=== PATIENT | female | born 2000 | race Caucasian/White ===

== ENCOUNTER 2021-10-06 12:38 | Outpatient (RCR) | payer BC, SELFPAY ==
[2021-10-06 13:07] LABS: Basophils Absolute Auto 0.1 K/mm3 (0.0-0.1); Basophils Percent Auto 0.5 % (0.2-1.2); Eosinophils Absolute Auto 0.2 K/mm3 (0-0.3); Eosinophils Percent Auto 1.7 % (0-4.4); Hematocrit 34.5 % (37.0-47.0); Hemoglobin 11.1 g/dL (12.0-15.0); Immature Granulocyte Absolute 0.05 K/mm3 (0.00-0.031); Immature Granulocyte Percent A 0.5 % (0-0.5); Lymphocytes Absolute Auto 1.46 K/mm3 (0.9-3.2); Lymphocytes Percent Auto 14.5 % (18.3-44.2); Mean Corpuscular HGB Conc 32.2 g/dl (32-36); Mean Corpuscular Hemoglobin 29.1 pg (26-34); Mean Corpuscular Volume 90.3 fl (80-100); Mean Platelet Volume 10.8 fl (7.4-10.4); Monocytes Absolute Auto 0.7 K/mm3 (0.1-0.6); Monocytes Percent Auto 7.2 % (2.6-8.5); Neutrophils Absolute Auto 7.6 K/mm3 (1.3-6.7); Neutrophils Percent Auto 75.6 % (45.5-73.1); Platelet Count Result 188 k/mm3 (150-375); Red Blood Count 3.82 M/mm3 (4.2-5.4); Red Cell Distribution Width 13.6 % (11.5-14.5); White Blood Count 10.1 K/mm3 (4.5-10.0)
[2021-10-06 13:54] LABS: Hepatitis B Surface Antigen Negative (Negative); Rubella IgG Antibody 38.3 IU/ML
[2021-10-06 13:59] LABS: HIV 1/2 Ab P24 Ag Result Negative (Negative)
[2021-10-06 14:02] LABS: Hepatitis C Virus Antibody Negative (Negative)
[2021-10-07 11:48] LABS: Rapid Plasma Reagin Non-Reactive (NonReactive)
[2021-10-08 16:40] LABS: Varicella IgG Antibody <135.00 Index (>=165.00)
== END 2022-01-04 23:59 | disposition home or self-care (01) ==
LOC: ANHLAB 12:38
PROVIDERS: Visit Provider Obstetrics & Gynecology
DX: Z11.4 Encounter for screening for human immunodeficiency virus [HIV] (principal); O36.0190 Maternal care for anti-D [Rh] antibodies, unspecified trimester, not applicable or unspecified; Z3A.00 Weeks of gestation of pregnancy not specified
CPT/HCPCS: 36415; 84443; 85025; 85461; 86592; 86703; 86762; 86787; 86803; 87340; G0432

== ENCOUNTER 2021-10-12 14:52 | Outpatient (CLI) | payer BC, SELFPAY ==
--- NOTE | ~2021-10-12 | US_ITS ---
EXAMINATION: US OB /maternal detail DATE: 10/12/2021 16:06 INDICATION: anatomic survey. TECHNIQUE: Real-time ultrasound of the pelvis was performed. COMPARISON: None. FINDINGS: There is a single living fetus in vertex presentation. The placenta is anterior, 5.4 cm in the cervi x. heart rate is 122 beats per minute (bpm). The amniotic fluid index is 25.8 cm, which is high (95th percentile is 23.9 cm). The following biometric data were obtained: Biparietal diameter (BPD): 8.7 cm; head circumference (HC): 32.3 cm; abdominal circumference (AC): 32 .6 cm; femur length (FL): 6.8 cm. These measurements are concordant. Estimated weight is 2795 g +/- 419 g, which correlates with the 14th percentile when 10/26/21 is used as estimated date of delivery. As single measurements, these parameters are each equal to the following estimated gestational ages: BPD: 35 weeks 0 days. HC: 36 weeks 4 days. AC: 36 weeks 3 days. FL: 34 weeks 6 days. estimated gestational age based solely on measurements from this exam is 35 weeks 5 days +/- 2 weeks 4 days. The cerebral ventricles, cerebellum, cisterna magna, and visualized portions of the spine are normal. The heart is normal. The diaphragm, stomach, kidneys, and bladder are normal. There are two umbilica l arteries to yield a 3-vessel cord. The cord insertion is normal. IMPRESSION: 1. Single living fetus in vertex presentation. 2. Estimated weight is 2795 g +/- 419 g, which correlates with the 14th percentile when 2 is used as estimated date of delivery. 3. Normal anatomic survey. 4. Polyhydramnios. Reviewed, dictated and finalized at location A. ABLE CANTEEN OPERATOR IMPRESSION: 1. Single living fetus in vertex presentation. 2. Estimated weight is 2795 g +/- 419 g, which correlates with the 14th percentile when 10/26/21 is used as estimated date of delivery. 3. Normal anatomic survey. 4. Polyhydramnios.
== END 2021-10-12 14:53 | disposition home or self-care (01) ==
LOC: ANHIMG 15:01
PROVIDERS: Visit Provider Obstetrics & Gynecology
DX: Z36.0 Encounter for antenatal screening for chromosomal anomalies (principal); Z36.3 Encounter for antenatal screening for malformations; O40.3XX0 Polyhydramnios, third trimester, not applicable or unspecified
CPT/HCPCS: 76805

== ENCOUNTER 2021-10-19 15:41 | Outpatient (RCR) | payer BC, SELFPAY ==
--- NOTE | ~2021-10-19 | US_ITS ---
EXAMINATION: US OB follow up w BPP EXAM DATE: 10/19/2021 17:10 INDICATION: Small for gestational age, elevated fluid level/ DEBBY,BPP SGA?/ 3rd trimester. Polyhydra mnios. TECHNIQUE: Pelvic obstetrical transabdominal sonogram was performed by a technologist. There are mu ltiple grayscale and Doppler images available for interpretation. Comparison is made to prior examina tion from 10/12/2021. FINDINGS: There is a single fetus identified in vertex presentation with a heart rate of 134 beats pe r minute. The placenta is located in the anterior position. There is no sonographic evidence of retr oplacental hemorrhage identified. AMNIOTIC FLUID INDEX Quadrant 1: 9.2 cm Quadrant 2: 2.6 cm Quadrant 3: 3.6 cm Quadrant 4: 7.1 cm Amniotic fluid index: 22.6 cm. (The 5th -- 95th percentile range is 7.3-23.9). Measurement on prior study was 25.5 cm. BIOPHYSICAL PROFILE (performed by the technologist) breathing (30 sec sustained breathing in 30 minutes): 2 out of 2 movement (3 gross body movements in 30 minutes): 2 out of 2 tone (one episode of iwkajxo-kajkycakw-iewontg limb movement): 2 out of 2 Amniotic fluid pocket (2 cm): 2 out of 2 Total score: 8 out of 8 IMPRESSION: 1. Single fetus with heart rate of 134 bpm. 2. Normal biophysical profile score of 8 out of 8. 3. DEBBY 22.6 cm, upper limits of normal. Reviewed, dictated and finalized at location A. DING ARCHITECT
[2021-10-19 17:29] VITALS: BP 111/60; PULSE 74
== END 2021-11-12 20:38 | disposition home or self-care (01) ==
LOC: ANHOBOP 15:41
PROVIDERS: Visit Provider Obstetrics & Gynecology
DX: O36.5930 Maternal care for other known or suspected poor fetal growth, third trimester, not applicable or unspecified (principal); O40.3XX0 Polyhydramnios, third trimester, not applicable or unspecified; Z3A.39 39 weeks gestation of pregnancy
CPT/HCPCS: 59025; 76816; 76819

== ENCOUNTER 2021-10-23 15:27 | Inpatient (IN) | payer BC, SELFPAY ==
[2021-10-23] VITALS (88 sets, daily range): BP systolic 93–136; BP diastolic 54–91; PULSE 53–154; RESP 16–18; TEMP 36.8–37; O2SAT 95–100; BMI 22.2
[2021-10-23 16:20] LABS: Basophils Percent Auto 0.3 % (0.2-1.2); Eosinophils Absolute Auto 0.1 K/mm3 (0-0.3); Eosinophils Percent Auto 0.9 % (0-4.4); Hematocrit 33.8 % (37.0-47.0); Immature Granulocyte Absolute 0.06 K/mm3 (0.00-0.031); Immature Granulocyte Percent A 0.6 % (0-0.5); Lymphocytes Absolute Auto 1.57 K/mm3 (0.9-3.2); Lymphocytes Percent Auto 14.5 % (18.3-44.2); Mean Corpuscular HGB Conc 32.5 g/dl (32-36); Mean Corpuscular Hemoglobin 28.9 pg (26-34); Mean Corpuscular Volume 88.7 fl (80-100); Mean Platelet Volume 10.4 fl (7.4-10.4); Monocytes Absolute Auto 0.5 K/mm3 (0.1-0.6); Monocytes Percent Auto 4.7 % (2.6-8.5); Neutrophils Absolute Auto 8.5 K/mm3 (1.3-6.7); Platelet Count Result 212 k/mm3 (150-375); Red Blood Count 3.81 M/mm3 (4.2-5.4); Red Cell Distribution Width 14.6 % (11.5-14.5); White Blood Count 10.8 K/mm3 (4.5-10.0)
--- NOTE | 2021-10-23 16:56 | PM.IMHP ---
H&P: HPI History of Present Illness Date/Time: 10/23/21 16:56 Patient is a 21-year-old LMP 01/19/2021 currently 39 weeks 4 days gestation. Patient is dated by LMP consistent with an ultrasound performed at [facility] at 7 weeks gestation, per patient report. Ultrasound report not available. Patient presents to labor and delivery with complaints of leakage of fluid. Patient reports leakage of clear fluid at approximately 3:00 p.m. Patient also reported contractions. Denies any vaginal bleeding. Reports good movement. Upon arrival to labor and delivery, patient was noted to be grossly ruptured. Decision was made to admit patient to labor and delivery. Initial cervical exam was /-2. Patient has history of late entry to care and initiated care at 36 weeks gestation. also complicated by possible IUGR and polyhydramnios. Chief Complaint: IUP at 39w4d PROM Early labor Late entry to care Review of Systems Review of Systems: All systems reviewed & are unremarkable except as noted in HPI and below Constitutional: Constitutional: Reports as per HPI, Reports no additional constitutional complaints, Denies chills, Denies fever(s), Denies headache(s) and Denies night sweats Eyes: Eyes: Reports as per HPI and Reports no additional eye complaints ENT: Reports system reviewed and no additional complaints, except as documented, Reports as per HPI, Reports Normal hearing present and Denies headache(s) Cardiovascular: Cardiovascular: Reports as per HPI, Reports no additional cardiovascular complaints, Denies chest pain and Denies dyspnea Respiratory: Respiratory: Reports as per HPI, Reports no additional respiratory complaints, Denies cough and Denies dyspnea Gastrointestinal: Gastrointestinal: Reports as per HPI, Reports no additional gastrointestinal complaints, Denies abdominal pain, Denies change in bowel habits, Denies change in stool character, Denies nausea and Denies vomiting Genitourinary: Genitourinary: Reports no additional female genitourinary complaints, Reports as per HPI, Denies abnormal vaginal bleeding, Denies genital lesions, Denies hot flashes, Denies dyspareunia, Denies pelvic pain, Denies sexual dysfunction, Denies urinary incontinence, Denies vaginal discharge, Denies vaginal dryness and Denies vaginal odor Musculoskeletal: Musculoskeletal: Reports no additional musculoskeletal complaints and Reports as per HPI Integumentary/Breasts: Skin/Breast: Reports system reviewed and no additional complaints, except as docu, Reports as per HPI, Denies breast pain and Denies nipple discharge Neurologic: Reports system reviewed and no additional complaints, except as documented, Reports as per HPI, Reports Normal hearing present and Denies headache(s) Psychiatric: Psychiatric: Reports no additional psychiatric complaints, Reports as per HPI, Denies anxiety and Denies depression Endocrine: Endocrine: Reports no additional endocrine complaints and Reports as per HPI Hematologic/Lymphatic: Hematologic/Lymphatic: Reports no additional hematologic/lymphatic complaints and Reports as per HPI Allergic/Immunologic: Allergic/Immunologic: Reports no additional allergic/immunologic complaints and Reports as per HPI PMFSH Past Medical History Medical History Vaginal delivery x1 Surgical History Surgical History No pertinent past surgical history Family History Family History Father Alcoholism Anxiety and depression Mother Bladder cancer Grandparent Breast cancer Grandparent Hypertension Diabetes mellitus Social History Social History Smoking status: Never smoker Alcohol intake: never Substance use: never Agree to blood products: Yes Meds Home Medications
[2021-10-23] MEDS: OXYTOCIN 30 UNITS/NS 500 ML 30 UNITS/500 ML BAG IV CONT (17:00)
[2021-10-23] MEDS: LACTATED RINGERS 1,000 ML 125 ML IV CONT (17:00)
--- NOTE | 2021-10-23 17:09 | LDADM ---
This patient, Kimberly Norman, was admitted to Labor/Delivery/Recovery 108 on 10/23/21 at 15:27. Plans for labor, pain management and were discussed with patient. Patient/family oriented to hospital policies and general routines including ID bracelet, bed and alarms, visiting hours, pain management, procedures, bathroom and other care routines, personal items, smoking policy, room service/diet and guest tray routines, security routines, and visiting hours. Patient/Family are encouraged to report perceived risks to care and to ask questions if they do not understand what they are told or what they should do. See OBIX for further documentation.
--- NOTE | 2021-10-23 18:25 | WPDANESEPP ---
Anes - Eval Pre Procedure Procedure: labor epidural Date/Time: 10/23/21 18:25 Surgeon: gypsy Preop Diagnosis: pain during labor Pre Op Diagnosis: Leaking Patient Data Age: 21 Gender: F Height: 1.6 m Weight: 57 kg Last Vital Signs Temp 36.9 C 10/23/21 17:46 Pulse 60 10/23/21 18:15 BP 112/62 10/23/21 18:15 Allergies Allergy/AdvReac Type Severity Reaction Status Date / Time No Known Allergies Allergy Unknown Verified 10/20/21 09:32 Home Medications Medication Instructions Recorded Confirmed Type docosahexaenoic acid 200 mg capsule mg PO 09/30/21 10/20/21 History Laboratory Tests 10/23/21 10/23/21 10/23/21 16:08 16:08 16:08 WBC 10.8 K/mm3 H K/mm3 (4.5-10.0) RBC 3.81 M/mm3 L M/mm3 (4.2-5.4) Hgb 11.0 g/dL L g/dL (12.0-15.0) Hct 33.8 % L % (37.0-47.0) MCV 88.7 fl fl (80-100) MCH 28.9 pg pg (26-34) MCHC 32.5 g/dl g/dl (32-36) RDW 14.6 % H % (11.5-14.5) Plt Count 212 k/mm3 k/mm3 (150-375) MPV 10.4 fl fl (7.4-10.4) Immature Gran % (Auto) 0.6 % H % (0-0.5) Neut % (Auto) 79.0 % H % (45.5-73.1) Lymph % (Auto) 14.5 % L % (18.3-44.2) [place] % (Auto) 4.7 % % (2.6-8.5) Eos % (Auto) 0.9 % % (0-4.4) Baso % (Auto) 0.3 % % (0.2-1.2) Lymph # (Auto) 1.57 K/mm3 K/mm3 (0.9-3.2) [place] # (Auto) 0.5 K/mm3 K/mm3 (0.1-0.6) Eos # (Auto) 0.1 K/mm3 K/mm3 (0-0.3) Baso # (Auto) 0.0 K/mm3 K/mm3 (0.0-0.1) Abs Immat Gran (auto) 0.06 K/mm3 H K/mm3 (0.00-0.031) Absolute Neuts (auto) 8.5 K/mm3 H K/mm3 (1.3-6.7) Absolute Nucleated RBC 0.0 K/mm3 K/mm3 (0.0-0.012) Nucleated RBC % 0.0 % % (0.0-0.2) RPR Pending Blood Type O Positive Antibody Screen Negative Patient hx anesthesia problems: none Family hx anesthesia problems: none Results Review: All pre-operative results and documents have been reviewed as part of the pre-operative evaluation. [facility] Past Medical History Medical History (Updated 10/23/21 @ 18:26 by Naila Cohen CRNA) Vaginal delivery x1 Surgical History Surgical History No pertinent past surgical history Family History Family History Father Alcoholism Anxiety and depression Mother Bladder cancer Grandparent Breast cancer Grandparent Hypertension Diabetes mellitus Social History Social History Smoking status: Never smoker Alcohol intake: never Substance use: current Spiritual care concerns: No Agree to blood products: Yes Exam Day of Procedure 10/23/21 18:25
[2021-10-23 19:51] LABS: Amphetamine Screen Urine Negative (Negative); Barbiturate Screen Urine Negative (Negative); Benzodiazepines Screen Urine Negative (Negative); Cannabinoid Screen Urine Positive (Negative); Cocaine Screen Urine Negative (Negative); Methadone Screen Urine Negative (Negative); Opiate Screen Urine Negative (Negative); Phencyclidine Screen Urine Negative (Negative)
[2021-10-23] MEDS: ONDANSETRON INJ 4 MG/2 ML VIAL IV PUSH (20:07)
--- NOTE | 2021-10-23 20:37 | PM.OBPRVD ---
OB - Delivery Note Procedure Delivery date: 10/23/21 Procedure: Patient is a 21-year-old now who presented to labor and delivery on the afternoon of 10/23/2021 at 39 weeks and 4 days gestation with complaints of leakage of fluid at 3:05 p.m. Patient was noted to be grossly ruptured at time of presentation and in early labor. Patient was admitted to labor and delivery. Initial cervical exam was approximately 2 cm dilated. Patient was observed for a while, however, did not make further cervical change. Pitocin was started for labor augmentation. Patient became uncomfortable and requested an epidural for pain management which was placed without difficulty. Patient made quick cervical change afterwards and was noted to be fully dilated at 8:01 p.m. Patient was prepped and draped for delivery. At 8:24 p.m., patient delivered infant head atraumatically and without difficulty in [place] presentation. Occiput restituted to maternal left side. With subsequent push, the infant's neck, shoulders, and rest of body delivered without difficulty. was crying spontaneously. 's nose and mouth were suctioned with bulb suction. Infant was placed on maternal abdomen where care was assumed by awaiting nursing staff. Delayed cord clamping was performed for approximately 60 seconds. The cord was clamped and cut. A segment of cord was collected for cord gases. Cord blood was collected. The placenta was delivered spontaneously and intact. Uterine fundus was noted to be firm with massage. On inspection, no lacerations were noted. Estimated blood loss for entire delivery was 50 cc. The infant was a liveborn female , apgars 9 and 9, weighing 6 lb 8 oz. Both mother and baby doing well at end of delivery. events: Labor Augmentation and Polyhydramnios Delivery augmentation: pitocin Delivery monitor: external FHT and external uterine Route of delivery: Laceration Description: None Specimen: Yes (placenta, cord blood, and cord gases) Quantitative Blood Loss (ml): 50 Anesthesia type: Epidural Disposition: floor Complications: No immediate complications [place] Baby Date of : 10/23/21 Time of : 20:24 Weeks of gestation at delivery: 39 (39.4) Infant gender: Female Weight (pounds): 6 Weight (ounces): 8 presentation: vertex position: Left Occiput Anterior Placenta delivery description: Spontaneous cord vessel description: 3 Vessels, Clamped/Cut and Delayed Cord Clamping score one minute: 9 score five minutes: 9
[2021-10-23] MEDS: OXYTOCIN 30 UNITS/NS 500 ML 30 UNITS/500 ML BAG 125 UNITS IV CONT (20:57)
[2021-10-23] MEDS: ACETAMINOPHEN 325 MG TABLET 650 MG PO (22:23)
[2021-10-24 04:12] VITALS: BP 120/69; PULSE 71; RESP 16; TEMP 37.2
[2021-10-24] MEDS: IBUPROFEN 600 MG TABLET PO ×3 (04:31→16:59)
--- NOTE | 2021-10-24 08:42 | PM.OBPNVD ---
OB - PN: Subj Subjective Date/time seen: 10/24/21 08:42 Patient doing well. Pain well controlled with medication. Minimal lochia. Ambulating without difficulty. Voiding well. OB - PN: Obj Data Labs CBC & Chem 7: 10/24/21 04:31 Labs: Laboratory Results - last 24 hr 10/23/21 10/23/21 10/23/21 16:08 16:08 19:23 WBC 10.8 H RBC 3.81 L Hgb 11.0 L Hct 33.8 L MCV 88.7 MCH 28.9 MCHC 32.5 RDW 14.6 H Plt Count 212 MPV 10.4 Immature Gran % (Auto) 0.6 H Neut % (Auto) 79.0 H Lymph % (Auto) 14.5 L [place] % (Auto) 4.7 Eos % (Auto) 0.9 Baso % (Auto) 0.3 Lymph # (Auto) 1.57 [place] # (Auto) 0.5 Eos # (Auto) 0.1 Baso # (Auto) 0.0 Abs Immat Gran (auto) 0.06 H Absolute Neuts (auto) 8.5 H Absolute Nucleated RBC 0.0 Nucleated RBC % 0.0 Urine Opiates Screen Negative Urine Methadone Screen Negative Ur Barbiturates Screen Negative Ur Phencyclidine Scrn Negative Ur Amphetamine Screen Negative U Benzodiazepines Scrn Negative Urine Cocaine Screen Negative U Cannabinoids Screen Positive A Blood Type O Positive Antibody Screen Negative 10/24/21 04:31 WBC RBC Hgb 10.0 L Hct 30.0 L MCV MCH MCHC RDW Plt Count MPV Immature Gran % (Auto) Neut % (Auto) Lymph % (Auto) [place] % (Auto) Eos % (Auto) Baso % (Auto) Lymph # (Auto) [place] # (Auto) Eos # (Auto) Baso # (Auto) Abs Immat Gran (auto) Absolute Neuts (auto) Absolute Nucleated RBC Nucleated RBC % Urine Opiates Screen Urine Methadone Screen Ur Barbiturates Screen Ur Phencyclidine Scrn Ur Amphetamine Screen U Benzodiazepines Scrn Urine Cocaine Screen U Cannabinoids Screen Blood Type Antibody Screen OB - PN A/P Assessment and Plan (1) Normal spontaneous vaginal delivery: Code(s): O80 - Encounter for full-term uncomplicated delivery Status: Acute Assessment and Plan: PPD#1 doing well continue routine care child protective services social worker consult requested for limited care anticipate dc home tomorrow Time Spent With Patient Time: Total time spent is greater than 50% in coordination of care (as documented) at patient's floor/unit and/or counseling patient: Exam Const: General: cooperative, healthy appearing, comfortable and no acute distress GI: Inspection: non-distended GI Palp: Yes Soft to palpation and No Tenderness to palpation present (GI) Other: fundus below umbilicus Extrem: Right lower extremity: no edema Left lower extremity: no edema Other: no calf tenderness Psych: Appearance: grossly normal Mental Status: mental status grossly normal
--- NOTE | 2021-10-24 09:00 | PC.NURSE ---
PT introductions made and plan of care discussed per post , pain management, breast feeding, pumping, daily care activities and baby in level 2 nursery. PT received such instructions per one to one discussion, mom baby care guide book, and demonstrations. Pt has no barrier to learning identified and pt sole recipient of such instructions this shift. PT verbalized understanding of such care.
--- NOTE | 2021-10-24 10:42 | PCCCNOTE ---
Addendum entered by ROSARIO Mckenna 10/24/21 12:08: Recvd email from [facility] that states: Your information has been reviewed and assessed by a Industrial Garage Servicer and was also approved by a foam cutting supervisor. The information you provided did not meet one of the criteria for an investigation (eligible victim, eligible perpetrator, eligible event, or jurisdiction). The information as been documented and will be kept on file. Should you learn of further information or have additional concerns, please feel free to contact us. Original Note: Recvd notification that pt. tested positive for THC during UDS. Baby also tested positive for THC during UDS. Baby's meconium is pending. Anticipate discharge tomorrow per SERA Albrecht. Pt. states no reason that she was using during , just never stopped once pt. found out she was . Pt. had late care due to switching insurance, pt. states. Pt. reports this is her 2nd baby. Pt. reports her daughter Omari is 3 years old. Pt. states she, , and Omari will live with FOLauar Dow (who was at bedside, but asleep). Pt. states her parents, and Aunt and Uncle are supportive, as well as Victor M's mother. Pt. reports having all necessary supplies for and established with both [employer]. Pt. denies prior [facility] involvement. resources provided. Online Report made #[id number]. SERA Albrecht aware.
[2021-10-24 11:15] VITALS: BP 116/52; PULSE 62; RESP 18; TEMP 36.6; O2SAT 100
[2021-10-24] MEDS: DOCUSATE SODIUM 100 MG CAPSULE PO ×2 (11:17→16:59)
[2021-10-24] MEDS: MULTIVIT/MIN/PREN/FOL AC/IRON TABLET 1 TAB PO (11:17)
[2021-10-24] MEDS: ACETAMINOPHEN 325 MG TABLET 650 MG PO ×2 (11:17→16:58)
[2021-10-24 12:00] VITALS: BP 114/45; PULSE 59; RESP 18; TEMP 36.6; O2SAT 100
[2021-10-24 16:00] VITALS: BP 112/69; PULSE 58; RESP 20; TEMP 36.7; O2SAT 99
[2021-10-24 20:10] VITALS: BP 107/69; PULSE 63; RESP 18; TEMP 36.7; O2SAT 100
[2021-10-25] MEDS: MULTIVIT/MIN/PREN/FOL AC/IRON TABLET 1 TAB PO (07:24)
[2021-10-25] MEDS: TETANUS,DIPHTHERIA,AC PERTUSSIS ADULT (0.5 ML) BOOSTRIX IM (07:25)
[2021-10-25] MEDS: IBUPROFEN 600 MG TABLET PO (07:27)
[2021-10-25 07:40] VITALS: BP 117/71; PULSE 65; RESP 16; TEMP 37.6; O2SAT 97
--- NOTE | 2021-10-25 08:02 | P.PNOB_ITS ---
OB - PN: Subj Subjective Date/time seen: 10/25/21 08:02 Patient comments: no complaints, pain well controlled and other (Lochia similar to menses) [place] baby status: doing well OB - PN: Obj Data Labs CBC & Chem 7: 10/24/21 04:31 OB - PN A/P Plan day: 2 (s/p vaginal delivery, doing well) Plan: routine care, discharge home and other (Follow up in office in 4 weeks) Time Spent With Patient Time: Total time spent is greater than 50% in coordination of care (as documented) at patient's floor/unit and/or counseling patient: Exam Const: General: no acute distress GI: Inspection: other (Fundus firm and nontender below umbilicus) GI Palp: Yes Soft to palpation and No Tenderness to palpation present (GI) Extrem: General: no edema
--- NOTE | 2021-10-25 08:03 | PM.OBDSVD ---
DS: Admitting Diagnosis Discharge Date 10/25/2021 Admitting Diagnosis Full term labor DS: Discharge Diagnosis Discharge Diagnosis (1) Normal spontaneous vaginal delivery: Code(s): O80 - Encounter for full-term uncomplicated delivery Status: Acute OB - DS: Summary OB Procedures : None OB Procedures Intrapartum: Spontaneous Vag Delivery OB Procedures: : None Peripartum Data Delivery Method: Natural Vaginal Laceration Description: None complications: none Status at Discharge Functional status at discharge: independent ambulation Overall status at discharge: patient is progressing back to baseline Time Spent with Patient Time attestation: Total time spent providing and/or coordinating discharge services: Time spent: Less than 30 minutes DS: Data Data Completed and Pending Pending studies at discharge: Pending at discharge 10/23/21 20:28 Surgical [PTH] Routine Discharge Plan Discharge Attending physician on discharge: Rosio Grey Discharging Clinician: Rosio Grey Patient Disposition: Home, Self-Care Activity: may shower and pelvic rest Diet: as tolerated Wound Care Instructions: follow printed instructions Patient Instructions: Antibiotic Form Stand Alone Forms: General Discharge Information Follow-up/Referrals: Rosio Grey MD [Physician] - 4 Weeks Discharge Medications: New ibuprofen 600 mg Tablet 600 mg PO Q6H PRN (Reason: Cramping) Qty: 60 RF: 0 Continued DHA 200 mg capsule 200 mg PO DAILY RF: 0 Date of admission: 10/23/21 15:27 Primary Care Provider: UNKNOWN,DOCTOR Admitting Provider: Rosio Grey Attending physician on admission: Rosio Grey Condition: Stable
--- NOTE | 2021-10-25 11:07 | PC.NURSE ---
0815 - Mother verbalizes she is able to independently latch with appropriate positioning/alignment. She denies any nipple discomfort, is feeding as required and waking to feed if needed. is currently meeting outcomes for weight, output, jaundice and feeding frequencies. Mother states she does not require feeding assist/education at this time. RN answered question and reviewed resources in the Mom/Baby guide. Infant has had 8-12 effective feedings in the past 24 hours, and is currently meeting outcomes for weight, output, jaundice and feeding frequencies. Mother states she feels confident to continue effective at home. Reviewed transition to breast milk, signs of adequate intake, and engorgement/relief. Instructed to call ICP if intake/output less than required. Reviewed regular medications mother is taking. Information provided per Amber. Reviewed community resources on the [employer] website and in the Mom/Baby guide. Information on outpatient services provided. Mother has no further questions at this time. Instructed mother to call out for future feedings if assistance is needed. Reported to primary RN.
[2021-10-25 11:59] LABS: Rapid Plasma Reagin Non-Reactive (NonReactive)
--- NOTE | 2021-10-25 14:19 | PC.NURSE ---
Patient instructed on viewing the discharge video Mother & Baby Care, The First Two Weeks . Patient was given the opportunity and encouraged to ask questions. Patient verbalized understanding of information shared and has been given the mother/baby guide for home reference.
[2021-10-26 07:44] VITALS: BP 108/47; PULSE 76; RESP 16; TEMP 36.8; O2SAT 99
== END 2021-10-25 15:21 | disposition home or self-care (01) | DRG 560 ==
LOC: ANHLDR 15:54 → ANHOB2 23:56
PROVIDERS: Admitting Provider Student in an Organized Health Care Education/Training Program; Visit Provider Obstetrics & Gynecology
DX: O40.3XX0 Polyhydramnios, third trimester, not applicable or unspecified (principal); O62.3 Precipitate labor; O76 Abnormality in fetal heart rate and rhythm complicating labor and delivery; Z3A.39 39 weeks gestation of pregnancy; Z37.0 Single live birth; Z23 Encounter for immunization
CPT/HCPCS: 36415; 80307; 85014; 85018; 85025; 86592; 86850; 86900; 86901; 88307; 90471; 90653; 90715; A9270; G0008; J2405; J2590; J2795; J7120